=== PATIENT | male | born 1995 | race Caucasian/White ===

== ENCOUNTER → 2016-07-28 | Outpatient (CLI) | payer OTHER | LOC: BMCIMAGING 11:18 | PROVIDERS: ATTEND Family Medicine | DX: R05 Cough (principal); R50.9 Fever, unspecified; J98.4 Other disorders of lung ==

== ENCOUNTER 2016-07-30 04:46 | Emergency (ER) | payer OTHER ==
[2016-07-30] MEDS ORDERED: ONDANSETRON 4 MG/2 ML VIAL ONE (05:06)
[2016-07-30] MEDS ORDERED: IBUPROFEN 600 MG TAB PO ONE ×2 (05:06→05:24)
[2016-07-30] MEDS ORDERED: ONDANSETRON 4 MG/2 ML VIAL IVP ONE (05:24)
[2016-07-30] MEDS ORDERED: NS 1,000 ML IV ONE ×2 (05:24)
--- NOTE | 2016-07-30 05:29 | EDPHY ---
H & P Stated Complaint: recent pnuemonia started abx vomitiing and no better Time Seen by Provider: 07/30/16 05:00 HPI/ROS: Chief Complaint: Pneumonia, nausea, vomiting HPI: 21-year-old male with 1 week of cough, fevers, chills, nausea vomiting. Patient was seen at urgent care 2 days ago and had a chest x-ray and diagnosed with a left lower lobe pneumonia. He was start it on Augmentin for this. Patient states he is also complaining of migraine headaches at that time was started on Percocet. Patient has been taking his medicines but has had persistent nausea and vomiting and unable to keep anything down. He is having continuing fevers and chills. No abdominal pain. No diarrhea but did have some constipation after taking the Percocet. He has not taken this for 2 days. He feels very dehydrated is having some mild lightheadedness when he stands. ROS: 10 point Review of Systems is negative except as noted in the HPI. PMH: None Medications: None Allergies: None Social History: No smoking, no alcohol, no recreational drug use Family History: non-contributory Physical Exam: Gen: Awake, Alert, No Distress HEENT: Nose: no rhinorrhea Eyes: PERRLA, EOMI Mouth: Dry mucous membranes Neck: Supple, no JVD Chest: nontender, fine crackles at the left base Heart: S1, S2 normal, no murmur Abd: Soft, non-tender, no guarding Back: no CVA tenderness, no midline tenderness Ext: no edema, non-tender Skin: no rash Neuro: CN II-XII intact, Sensation grossly intact, Strength 5/5 in bilateral upper and lower extremities - Personal History Current Tetanus/Diphtheria Vaccine: Yes Current Tetanus Diphtheria and Acellular Pertussis (TDAP): Yes - Medical/Surgical History Hx Asthma: Yes Hx Chronic Respiratory Disease: No Hx Diabetes: No Hx Cardiac Disease: No Hx Renal Disease: No Hx Cirrhosis: No Hx Alcoholism: No Hx HIV/AIDS: No Hx Splenectomy or Spleen Trauma: No Other PMH: r finger surgery - Social History Smoking Status: Current some day smoker Constitutional: Initial Vital Signs Temperature (C) 38.6 C H 07/30/16 04:49 Heart Rate 114 H 07/30/16 04:49 Respiratory Rate 18 07/30/16 04:49 Blood Pressure 112/58 L 07/30/16 04:49 O2 Sat (%) 94 07/30/16 04:49 O2 Delivery Mode Room Air O2 (L/minute) 2 Allergies/Adverse Reactions: No Known Allergies Allergy (Unverified 07/30/16 04:48) Home Medications: Medication Instructions Recorded AMOXICILLIN 07/30/16 AZITHROMYCIN [Z-PACK] 250 mg PO DAILY #6 tab 07/30/16 Vicodin 5-300 mg Tablet 07/30/16 Medical Decision Making ED Course/Re-evaluation: Patient with pneumonia with vomiting and dehydration not keeping fluids down likely secondary to the narcotic analgesia been giving him. He has gotten IV fluids here antipyretics and antiemetics. He is tolerating p. o.. He has fever has come down. His heart rate has come down. I have added on azithromycin as additional coverage for broader spectrum for his pneumonia. He is otherwise well-appearing. He is tolerating p. o.. Will discharge with follow up with outpatient primary care follow-up, return for worsening. - Data Points Medications Given: Discontinued Medications Acetaminophen (Tylenol) 1,000 mg PO EDNOW ONE Stop: 07/30/16 06:20 Last Admin: 07/30/16 06:23 Dose: 1,000 mg Sodium Chloride (Ns) 1,000 mls @ 0 mls/hr IV ONCE ONE PRN Reason: Wide Open Stop: 07/30/16 05:25 Last Admin: 07/30/16 05:57 Dose: 1,000 mls Sodium Chloride (Ns) 1,000 mls @ 0 mls/hr IV ONCE ONE PRN Reason: Wide Open Stop: 07/30/16 05:25 Last Admin: 07/30/16 05:25 Dose: 1,000 mls Ibuprofen (Motrin) 600 mg PO EDNOW ONE Stop: 07/30/16 05:25 Last Admin: 07/30/16 05:36 Dose: 600 mg Ondansetron HCl (Zofran) 4 mg IVP EDNOW ONE Stop: 07/30/16 05:25 Last Admin: 07/30/16 05:25 Dose: 4 mg Departure - Departure Disposition: Home, Routine, Self-Care Clinical Impression: Pneumonia, Dehydration Condition: Good Instructions: Ondansetron (By mouth), Dehydration (ED), Acute Nausea and Vomiting (ED), Community Acquired Pneumonia (ED) Additional Instructions: Continue taking the Augmentin and add on azithromycin to your antibiotics. You may take ondansetron as needed for nausea and vomiting. I would discontinue taking the Percocet or [place] for your headaches as these can cause nausea and constipation. Follow up with primary care physician in 2-3 days if symptoms are not improving. Return to the emergency depart for increasing chest pain, shortness of breath, uncontrolled fevers or chills or nausea and vomiting. Referrals: NONE *PRIMARY CARE P,. [Primary Care Provider] - As per Instructions Hector Hardy MD [Medical Doctor] - As per Instructions Prescriptions: AZITHROMYCIN [Z-PACK] 250 mg PO DAILY #6 tab
[2016-07-30 06:09] VITALS: RESP 16
[2016-07-30] MEDS ORDERED: ACETAMINOPHEN 500 MG TAB ONE (06:17)
[2016-07-30] MEDS ORDERED: ACETAMINOPHEN 500 MG TAB PO ONE (06:19)
[2016-07-30] MEDS ORDERED: AZITHROMYCIN 250 MG TAB PO ONE ×2 (06:41)
[2016-07-30] MEDS ORDERED: ONDANSETRON 4MG PREPACK#2 BTL TAKEHOME ONE ×2 (06:41)
[2016-07-30 06:50] VITALS: BP 121/66; PULSE 89; TEMP 100.2; O2SAT 96
== END 2016-07-30 07:03 | disposition home or self-care (01) ==
DX: J18.9 Pneumonia, unspecified organism (principal); E86.0 Dehydration; J45.909 Unspecified asthma, uncomplicated; F17.200 Nicotine dependence, unspecified, uncomplicated
CPT/HCPCS: 96374; J2405